=== PATIENT | female | born 1970 | race Caucasian/White ===

== ENCOUNTER 2024-06-26 19:51 | Outpatient (CLI) | payer MEDICARE, SELFPAY | END 2024-06-26 19:52 | disposition home or self-care (01) | LOC: SLEEP 19:58 | PROVIDERS: Visit Provider Internal Medicine | DX: G47.33 Obstructive sleep apnea (adult) (pediatric) (principal); R09.02 Hypoxemia | CPT/HCPCS: 95811; A9270 ==